=== PATIENT | female | born 1975 | race Caucasian/White ===

== ENCOUNTER 2018-02-01 11:17 | Emergency (ER) | payer SELFPAY ==
[~2018-02-01] VITALS: Ht 152.4 cm; Wt 81.6 kg
[2018-02-01] MEDS ORDERED: FAMOTIDINE 20 MG/2 ML VIAL IV STA (11:38)
[2018-02-01] MEDS ORDERED: ONDANSETRON HCL INJ 2 MG/ML VIAL IV STA (11:38)
[2018-02-01] MEDS ORDERED: SODIUM CHLORIDE 0.9% 1000ML 1,000 ML IV ONE (11:45)
[2018-02-01] MEDS ORDERED: MORPHINE SULFATE 5 MG/ML VIAL IV ONE (11:45)
[2018-02-01] MEDS ORDERED: HYOSCYAMINE SULFATE 0.5 MG/ML AMP IV ONE (11:45)
[2018-02-01] MEDS ORDERED: MORPHINE SULFATE 2 MG/ML SYR IV NR (12:00)
[2018-02-01] MEDS ORDERED: FAMOTIDINE 20 MG/2 ML VIAL IV NR (12:00)
[2018-02-01 12:09] LABS: BASOPHILS # (AUTO) 0.1 (0.0-0.1); BASOPHILS % 0.7 % (0.0-1.0); BILIRUBIN,URINE NEGATIVE (NEGATIVE); CLARITY,URINE CLOUDY (CLEAR); COLOR,URINE YELLOW (YELLOW); EOSINOPHILS # (AUTO) 0.2 (0.0-0.4); EOSINOPHILS % 1.6 % (0.0-6.0); HEMATOCRIT 40.2 % (34.2-44.1); HEMOGLOBIN 13.4 g/dL (12.0-16.0); KETONES,URINE NEGATIVE (NEGATIVE); LEUKOCYTE ESTERASE ,URINE TRACE (NEGATIVE); LYMPHOCYTES # (AUTO) 2.1 (1.0-3.2); LYMPHOCYTES % 15.9 % (18.0-39.1); MEAN CORPUSCULAR HEMOGLOBIN 29.5 pg (28-32); MEAN CORPUSCULAR HGB CONC 33.3 g/dL (31-35); MEAN CORPUSCULAR VOLUME 88.5 fL (81-99); MONOCYTES # (AUTO) 1.1 (0.2-0.8); MONOCYTES % 8.2 % (4.4-11.3); NEUTROPHILS # (AUTO) 9.8 (2.1-6.9); NEUTROPHILS % 73.1 % (38.7-80.0); NITRITE,URINE NEGATIVE (NEGATIVE); PLATELET COUNT 360 x10e3/uL (140-360); PROTEIN,URINE DIPSTICK 1+ (NEGATIVE); RED BLOOD COUNT 4.54 x10e6/uL (3.6-5.1); RED CELL DISTRIBUTION WIDTH 13.7 % (11.7-14.4); URINE UROBILINOGEN 0.2 mg/dL (0.2 - 1)
[2018-02-01 12:22] LABS: AMORPHOUS SEDIMENT,URINE FEW (FEW); BACTERIA,URINE FEW /HPF; EPITHELIAL CELLS,URINE RARE /LPF; RBC,URINE 21-50 /HPF (0-5); WBC,URINE (MAN) 0-5 /HPF (0-5)
[2018-02-01 12:30] LABS: ALANINE AMINOTRANSFERASE 14 IU/L (0-55); ALBUMIN 3.8 g/dL (3.5-5.0); ALBUMIN/GLOBULIN RATIO 1.1 (0.8-2.0); ALKALINE PHOSPHATASE 83 IU/L (40-150); ANION GAP 12.5 mmol/L (8-16); BLOOD UREA NITROGEN 13 mg/dL (7-26); BUN/CREATININE RATIO 18 (6-25); CALCIUM 9.2 mg/dL (8.4-10.2); CARBON DIOXIDE 21 mmol/L (22-29); CHLORIDE 106 mmol/L (98-107); CREATININE, SERUM 0.72 mg/dL (0.57-1.11); EST GLOMERULAR FILTRATION RATE > 60 ML/MIN (60-); GLUCOSE 97 mg/dL (74-118); LIPASE 35 U/L (8-78); POTASSIUM 3.5 mmol/L (3.5-5.1); SODIUM 136 mmol/L (136-145)
--- NOTE | 2018-02-01 13:38 | Diagnostic Imaging Report ---
PROCEDURE: CT ABDOMEN AND PELVIS WITH CONTRAST TECHNIQUE: The abdomen and pelvis were scanned utilizing a multidetector helical scanner from the diaphragm to the lesser trochanter after the IV administration of 100 cc of Isovue 370 and the oral administration of water. Coronal and sagittal multiplanar reformations were obtained. Total DLP: 722.4 mGy-cm COMPARISON: None. INDICATIONS: ABDOMINAL PAIN FINDINGS: LOWER THORAX: Bilateral lower lobe atelectasis.. HEPATOBILIARY: Diffuse hepatic steatosis. No focal hepatic lesions. Main common duct measures 1.1 cm, related to post cholecystectomy reservoir effect. SPLEEN: No splenomegaly. PANCREAS: No focal masses or ductal dilatation. ADRENALS: No adrenal nodules. KIDNEYS/URETERS: No right hydronephrosis, stones, or solid mass lesions. 1.3 cm right renal cyst. 0.5 cm stone in the left UPJ causing mild left hydronephrosis and left perinephric fat stranding. PELVIC ORGANS/BLADDER: Multiple uterine fibroids. Uterus is normal. PERITONEUM / RETROPERITONEUM: No free air or fluid. LYMPH NODES: No lymphadenopathy. VESSELS: Unremarkable. GI TRACT: No distention or wall thickening. BONES AND SOFT TISSUES: Unremarkable. IMPRESSION: 0.5 cm stone in the left UPJ causing mild left hydronephrosis and left perinephric fat stranding. Correlate for possible superimposed infection. Dictated by: Luis Enrique Stern M.D. on 02/01/2018 at 13:38 Electronically approved by: Luis Enrique Stern M.D. on 02/01/2018 at 13:38
[2018-02-01] MEDS ORDERED: CEFTRIAXONE SOD 1 GM VIAL IV ONE (14:00)
[2018-02-01] MEDS ORDERED: IOPAMIDOL 370 MG/ML 200 ML INFUS..BTL INJ ONE (15:07)
[2018-02-01] MEDS ORDERED: SODIUM CHLORIDE 0.9% 50ML 50 ML ONE (15:07)
[2018-02-01 15:22] VITALS: BP 128/80
== END 2018-02-01 15:19 | disposition home or self-care (01) ==
LOC: ER 11:17
DX: M54.5 Low back pain (principal); R11.0 Nausea; R10.9 Unspecified abdominal pain; N20.1 Calculus of ureter
CPT/HCPCS: 36415; 74177; 80053; 81001; 83690; 84702; 85025; 99284; J0696; J1980; J2270; J2405; J7030; Q9967

== ENCOUNTER 2018-03-19 03:46 | Emergency (ER) | payer SELFPAY ==
[~2018-03-19] VITALS: Ht 152.4 cm; Wt 81.6 kg
--- OUTSIDE RECORDS SUMMARY | 2018-03-19 03:48 | XMS REPORT ---
Author Author [facility] [place] Address Unknown Phone Unavailable Care Team Providers Care Junior Designer Name Role Phone RAKESH PAN Unavailable Unavailable Problems This patient has no known problems. Allergies, Adverse Reactions, Alerts This patient has no known allergies or adverse reactions. Medications This patient has no known medications. Results Test Description Test Time Test Comments Text Results Atomic Results Result Comments CT ABDOMEN/PELVIS W [place] [address] Patient Name: OPAL WESTBROOK MR #: [id number] : 1975 Age/Sex: 42/F Req #: [id number] Adm Physician: Ordered by: RAKESH PAN MD Report #: [id number] Location: ER Room/Bed: Procedure: [id number] CT/CT ABDOMEN/PELVIS W Exam Date: Exam Time: REPORT STATUS: Signed PROCEDURE: CT ABDOMEN AND PELVIS WITH CONTRAST TECHNIQUE: The abdomen and pelvis were scanned utilizing a multidetector helical scanner from the diaphragm to the lesser trochanter after the IV administration of 100 cc of Isovue 370 and the oral administration of water. Coronal and sagittal multiplanar reformations were obtained. Total DLP: 722.4 mGy-cm COMPARISON: None. INDICATIONS: ABDOMINAL PAIN FINDINGS: LOWER THORAX: Bilateral lower lobe atelectasis.. HEPATOBILIARY: Diffuse hepatic steatosis. No focal hepatic lesions. Main common duct measures 1.1 cm, related to post cholecystectomy reservoir effect. SPLEEN: No splenomegaly. PANCREAS: No focal masses or ductal dilatation. ADRENALS: No adrenal nodules. KIDNEYS /URETERS: No right hydronephrosis, stones, or solid mass lesions. 1.3 cm right renal cyst. 0.5 cm stone in the left UPJ causing mild left hydronephrosis and left perinephric fat stranding. PELVIC ORGANS/BLADDER: Multiple uterine fibroids. Uterus is normal. PERITONEUM / RETROPERITONEUM : No free air or fluid. LYMPH NODES: No lymphadenopathy. VESSELS: Unremarkable. GI TRACT: No distention or wall thickening. BONES AND SOFT TISSUES: Unremarkable. IMPRESSION: 0.5 cm stone in the left UPJ causing mild left hydronephrosis and left perinephric fat stranding. Correlate for possible superimposed infection. Dictated by: Mary Stern M.D. on 02/01/2018 at 13:38 Electronically approved by: Mary Stern M.D. on 02/01/2018 at 13:38 Dictated By: MARY STERN MD [id number] Transcribed By: ROGER on 02/01/18 1338 COPY TO: RAKESH PAN MD
--- OUTSIDE RECORDS SUMMARY | 2018-03-19 03:48 | XMS REPORT | Continuity of Care Document ---
Author Author [facility] Organization [facility] Address [address] [place] [address] Phone Unavailable Care Team Providers Care Grip Name Role Phone NO, PCP PCP Unavailable Advance Directives Directive Response Recorded Date/Time Does the patient have an advance directive? No 02/01/18 12:38pm If yes, is advance directive on file with [facility]? No 02/01/18 12:38pm If not on file with [facility] will patient provide a copy? No 02/01/18 12:38pm Do you have a Directive to Physician? No 02/01/18 12:38pm Do you have a Medical Power of Informaticist? No 02/01/18 12:38pm Do you have an out of hospital Do Not Resuscitate Order? No 02/01/18 12:38pm Do you have any special needs we should be aware of? No 02/01/18 12:38pm Do you have a support person here with you today? No 02/01/18 12:38pm Did patient receive Notice of Privacy Practices? Yes 02/01/18 12:38pm Did patient receive patient rights and responsibilities? Yes 02/01/18 12:38pm Problems No problem information available. Medications No medication information available. Social History No social history information available. Hospital Discharge Instructions No hospital discharge instruction information available. Plan of Care Discharge Date 02/01/18 3:19pm Disposition HOME, SELF-CARE Condition at Discharge Stable Instructions/Education Provided Kidney Stones Pyelonephritis Forms Provided Work/School Excuse Prescriptions See Medication Section Additional Instructions/Education FOLLOW UP WITH YOUR DOCTOR IN 3 DAYS DRINK PLEANTY OF FLUIDS, TAKE MEDUCATIONS PRESCRIBED Functional Status No functional status information available. Allergies, Adverse Reactions, Alerts No known allergies. Immunizations No immunization information available. Vital Signs Acute Vital Signs Vital Response Date/Time Pulse Pulse Rate (adult) 71 bpm (60 - 90) 02/01/2018 3:22pm Respiratory Rate 20 bpm (12 - 24) 02/01/2018 3:22pm Blood Pressure 128/80 mm Hg 02/01/2018 3:22pm Height 5 ft 0 in 02/01/2018 11:26am Weight 180 lb 02/01/2018 11:26am Body Mass Index 35.2 kg/m^2 02/01/2018 11:26am Results Laboratory Results Test Name Result Units Flags Reference Collection Date/Time Result Date/ Time Comments White Blood Count 13.34 x10e3/uL H 4.8-10.8 02/01/2018 [facility] 02/01/2018 12 :10pm Red Blood Count 4.54 x10e6/uL 3.6-5.1 02/01/2018 [facility] 02/01/2018 12: 10pm Hemoglobin 13.4 g/dL 12.0-16.0 02/01/2018 [facility] 02/01/2018 12:10pm Hematocrit 40.2 % 34.2-44.1 02/01/2018 [facility] 02/01/2018 12:10pm Mean Corpuscular Volume 88.5 fL 81-99 02/01/2018 [facility] 02/01/2018 12: 10pm Mean Corpuscular Hemoglobin 29.5 pg 28-32 02/01/2018 [facility] 02/01/2018 12: 10pm Mean Corpuscular Hemoglobin Concent 33.3 g/dL 31-35 02/01/2018 [facility] 12:10pm Red Cell Distribution Width 13.7 % 11.7-14.4 02/01/2018 [facility] 02/01/2018 12:10pm Platelet Count 360 x10e3/uL 140-360 02/01/2018 [facility] 02/01/2018 12:10pm Neutrophils (%) (Auto) 73.1 % 38.7-80.0 02/01/2018 [facility] 02/01/2018 12: 10pm Lymphocytes (%) (Auto) 15.9 % L 18.0-39.1 02/01/2018 [facility] 02/01/2018 12: 10pm Monocytes (%) (Auto) 8.2 % 4.4-11.3 02/01/2018 K 02/01/2018 12:10pm Eosinophils (%) (Auto) 1.6 % 0.0-6.0 02/01/2018 UNK 02/01/2018 12:10pm Basophils (%) (Auto) 0.7 % 0.0-1.0 02/01/2018 K 02/01/2018 12:10pm IM GRANULOCYTES % 0.5 % 0.0-1.0 02/01/2018 K 02/01/2018 12:10pm Neutrophils # (Auto) 9.8 H 2.1-6.9 02/01/2018 K 02/01/2018 12:10pm Lymphocytes # (Auto) 2.1 1.0-3.2 02/01/2018 K 02/01/2018 12:10pm Monocytes # (Auto) 1.1 H 0.2-0.8 02/01/2018 K 02/01/2018 12:10pm Eosinophils # (Auto) 0.2 0.0-0.4 02/01/2018 K 02/01/2018 12:10pm Basophils # (Auto) 0.1 0.0-0.1 02/01/2018 K 02/01/2018 12:10pm Absolute Immature Granulocyte (auto 0.07 x10e3/uL 0-0.1 02/01/2018 K 02/01/2018 12:10pm Urine Color YELLOW YELLOW 02/01/2018 K 02/01/2018 12:09pm Urine Clarity CLOUDY H CLEAR 02/01/2018 K 02/01/2018 12:09pm Urine Specific [place] 1.020 1.010-1.025 02/01/2018 K 02/01/2018 12 :09pm Urine pH 6.5 5 - 7 02/01/2018 K 02/01/2018 12:09pm Urine Leukocyte Esterase TRACE H NEGATIVE 02/01/2018 K 02/01/2018 12 :09pm Urine Nitrite NEGATIVE NEGATIVE 02/01/2018 K 02/01/2018 12:09pm Urine Protein 1+ H NEGATIVE 02/01/2018 K 02/01/2018 12:09pm Urine Glucose (UA) NEGATIVE NEGATIVE 02/01/2018 UNK 02/01/2018 12: 09pm Urine Ketones NEGATIVE NEGATIVE 02/01/2018 UNK 02/01/2018 12:09pm Urine Urobilinogen 0.2 mg/dL 0.2 - 1 02/01/2018 UNK 02/01/2018 12:09pm Urine Bilirubin NEGATIVE NEGATIVE 02/01/2018 K 02/01/2018 12:09pm Urine Blood 4+ H NEGATIVE 02/01/2018 K 02/01/2018 12:09pm Urine WBC 0-5 /HPF 0-5 02/01/2018 UNK 02/01/2018 12:23pm Urine RBC 21-50 /HPF H 0-5 02/01/2018 UNK 02/01/2018 12:23pm Urine Bacteria FEW /HPF NONE 02/01/2018 K 02/01/2018 12:23pm Urine Epithelial Cells RARE /LPF NONE 02/01/2018 K 02/01/2018 12: 23pm Urine Amorphous Sediment FEW FEW 02/01/2018 K 02/01/2018 12:23pm Urine Fine Granular Casts 1-5 H 0 02/01/2018 K 02/01/2018 12:23pm Sodium Level 136 mmol/L 136-145 02/01/2018 K 02/01/2018 12:30pm Potassium Level 3.5 mmol/L 3.5-5.1 02/01/2018 K 02/01/2018 12:30pm Chloride Level 106 mmol/L 98-107 02/01/2018 K 02/01/2018 12:30pm Carbon Dioxide Level 21 mmol/L L 22-29 02/01/2018 K 02/01/2018 12: 30pm Anion Gap 12.5 mmol/L 8-16 02/01/2018 K 02/01/2018 12:30pm Blood Urea Nitrogen 13 mg/dL 7-02/01/2018 K 02/01/2018 12:30pm Creatinine 0.72 mg/dL 0.57-1.11 02/01/2018 K 02/01/2018 12:30pm BUN/Creatinine Ratio 18 6-25 02/01/2018 K 02/01/2018 12:30pm Estimat Glomerular Filtration Rate > 60 ML/MIN 60- 02/01/2018 K 02/01 12:30pm Ranges were taken from the National Kidney Disease Education Program and the National Kid[employer] literature. Reference ranges: 60 or greater: Normal 16-59 (for 3 consecutive months): Chronic kidney disease 15 or less: Kidney failure Glucose Level 97 mg/dL 74-118 02/01/201802/01/2018 12:30pm Calcium Level 9.2 mg/dL 8.4-10.2 02/01/201802/01/2018 12:30pm Total Bilirubin 0.6 mg/dL 0.2-1.2 02/01/201802/01/2018 12:30pm Aspartate Amino Transf (AST/SGOT) 18 IU/L 5-34 02/01/20182017 12:30pm Alanine Aminotransferase (ALT/SGPT) 14 IU/L 0-55 02/01/2018 2017 12:30pm Total Protein 7.2 g/dL 6.5-8.1 02/01/2018 02/01/2018 12:30pm Albumin 3.8 g/dL 3.5-5.0 02/01/2018 K 02/01/2018 12:30pm Globulin 3.4 g/dL 2.3-3.5 02/01/2018 02/01/2018 12:30pm Albumin/Globulin Ratio 1.1 0.8-2.0 02/01/2018 02/01/2018 12:30pm Alkaline Phosphatase 83 IU/L 40-150 02/01/2018 02/01/2018 12:30pm Lipase 35 U/L 8-78 02/01/2018 02/01/2018 12:30pm Human Chorionic Gonadotropin, Qual NEGATIVE NEGATIVE 02/01/2018 02/01/2018 12:22pm Procedures Procedure Status Date Provider(s) Computed tomography of abdomen and pelvis with contrast Active 02/01/18 RAKESH PAN MD Encounters Encounter Location Arrival/Admit Date Discharge/Depart Date Attending Provider Departed Emergency Room [facility] 02/01/18 11:17am 02/01 3:19pm RAKESH PAN MD
[2018-03-19 04:25] LABS: BASOPHILS # (AUTO) 0.1 (0.0-0.1); BASOPHILS % 0.6 % (0.0-1.0); EOSINOPHILS # (AUTO) 0.2 (0.0-0.4); EOSINOPHILS % 1.9 % (0.0-6.0); HEMATOCRIT 38.4 % (34.2-44.1); LYMPHOCYTES # (AUTO) 2.1 (1.0-3.2); LYMPHOCYTES % 18.6 % (18.0-39.1); MEAN CORPUSCULAR HEMOGLOBIN 29.3 pg (28-32); MEAN CORPUSCULAR HGB CONC 33.9 g/dL (31-35); MEAN CORPUSCULAR VOLUME 86.5 fL (81-99); MONOCYTES # (AUTO) 0.9 (0.2-0.8); MONOCYTES % 8.3 % (4.4-11.3); NEUTROPHILS # (AUTO) 7.9 (2.1-6.9); NEUTROPHILS % 70.3 % (38.7-80.0); PLATELET COUNT 335 x10e3/uL (140-360); RED BLOOD COUNT 4.44 x10e6/uL (3.6-5.1)
[2018-03-19 04:31] LABS: CLARITY,URINE CLEAR (CLEAR); COLOR,URINE YELLOW (YELLOW); LEUKOCYTE ESTERASE ,URINE NEGATIVE (NEGATIVE); NITRITE,URINE NEGATIVE (NEGATIVE); PROTEIN,URINE DIPSTICK 1+ (NEGATIVE)
[2018-03-19 04:32] LABS: BILIRUBIN,URINE NEGATIVE (NEGATIVE); KETONES,URINE TRACE (NEGATIVE); PREGNANCY TEST, URINE NEGATIVE (NEGATIVE); URINE UROBILINOGEN 0.2 mg/dL (0.2 - 1)
[2018-03-19 04:33] LABS: AMPHETAMINES SCREEN,URINE NEGATIVE (NEGATIVE); BENZODIAZEPINES SCREEN,URINE NEGATIVE (NEGATIVE); PHENCYCLIDINE SCREEN,URINE NEGATIVE (NEGATIVE)
[2018-03-19 04:40] LABS: BACTERIA,URINE FEW /HPF; EPITHELIAL CELLS,URINE FEW /LPF; RBC,URINE >50 /HPF (0-5); WBC,URINE (MAN) 0-5 /HPF (0-5)
[2018-03-19] MEDS ORDERED: KETOROLAC TROMETHAMINE 30 MG/ML VIAL IV STA (04:46)
[2018-03-19 04:47] LABS: ALANINE AMINOTRANSFERASE 14 IU/L (0-55); ALBUMIN 3.6 g/dL (3.5-5.0); ALKALINE PHOSPHATASE 71 IU/L (40-150); AMYLASE 100 U/L (25-125); ANION GAP 13.7 mmol/L (8-16); BLOOD UREA NITROGEN 16 mg/dL (7-26); BUN/CREATININE RATIO 21 (6-25); CALCIUM 10.1 mg/dL (8.4-10.2); CARBON DIOXIDE 20 mmol/L (22-29); CHLORIDE 106 mmol/L (98-107); CREATININE, SERUM 0.78 mg/dL (0.57-1.11); EST GLOMERULAR FILTRATION RATE > 60 ML/MIN (60-); GLUCOSE 121 mg/dL (74-118); LIPASE 53 U/L (8-78); POTASSIUM 3.7 mmol/L (3.5-5.1); SODIUM 136 mmol/L (136-145)
--- NOTE | 2018-03-19 05:55 | Diagnostic Imaging Report ---
EXAM: CT ABDOMEN AND PELVIS without IV CONTRAST INDICATION: Left flank pain COMPARISON: CT of the abdomen and pelvis February 01, 2018 with IV contrast TECHNIQUE: The abdomen and pelvis were scanned using a multidetector helical scanner. Coronal and sagittal reformations were obtained. Routine protocol performed. IV Contrast: None Oral Contrast: None CTDIvol has been reviewed. It is below the limits set by the Radiation Protocol Committee (RPC). FINDINGS: LOWER THORAX: No consolidations LIVER: No masses BILIARY: Cholecystectomy. No ductal dilation. SPLEEN: No masses PANCREAS: No masses ADRENALS: No nodules RIGHT KIDNEY: No nephroureterolithiasis or hydronephrosis. LEFT KIDNEY: There is a 7 mm stone in the proximal left ureter at the L4/L5 level resulting in mild hydroureteronephrosis and perinephric fat stranding. GI TRACT: No wall thickening or obstruction. VESSELS: Unremarkable PERITONEUM/RETROPERITONEUM: No free air or fluid LYMPH NODES: No lymphadenopathy REPRODUCTIVE ORGANS: Fibroid uterus BLADDER: Normal SOFT TISSUES: Normal BONES: No suspicious bone lesions. IMPRESSION: There is a 7 mm stone in the proximal left ureter resulting in mild hydroureteronephrosis and perinephric fat stranding. Signed by: Dr. Roya Rebollar M.D. on 03/19/2018 5:52 AM
[2018-03-19] MEDS ORDERED: CEFTRIAXONE SOD 1 GM VIAL IV ONE (07:00)
[2018-03-19] MEDS ORDERED: HYDROMORPHONE 1MG/1ML INJ IV STA (07:16)
[2018-03-19] MEDS ORDERED: ONDANSETRON HCL 4 MG ORAL DISINTEGRATING TAB PO ONE (07:30)
[2018-03-19] MEDS ORDERED: SODIUM CHLORIDE 0.9% 1000ML 1,000 ML ONE (07:36)
[2018-03-19] MEDS ORDERED: HYDROMORPHONE 2MG/ML INJ IV PRN (07:45)
[2018-03-19] MEDS ORDERED: TAMSULOSIN HCL 0.4 MG CAP PO SCH (21:00)
== END 2018-03-19 10:23 | disposition other institution (70) ==
LOC: ER 03:46
DX: R10.32 Left lower quadrant pain (principal); N13.2 Hydronephrosis with renal and ureteral calculous obstruction; I10 Essential (primary) hypertension; F31.9 Bipolar disorder, unspecified
CPT/HCPCS: 36415; 74176; 80053; 80307; 81001; 81025; 82150; 83690; 85025; 99284; J0696; J1170; J1885; J7030